=== PATIENT | female | born 1940 | race Caucasian/White ===

== ENCOUNTER 2022-03-06 01:02 | Day surgery (SDC) | payer MEDICARE, SELFPAY ==
--- NOTE | 2022-02-23 15:22 | PC.NURSE ---
Report to the Outpatient Waiting Room, entrance under the green pavilion located off [facility], at time __0600 on date _03/06/22 . OR Time: ___729 . - You and your visitor will be asked to self-screen and do not enter if you have any COVID symptoms. - Only one visitor and NO children visitors are allowed at this time. - The patient visitor is requested to leave or wait in car when not with patient due to restrictions. - A mask is required within the hospital. Patients may have clear liquids (water, carbonated beverages, clear teas, apple juice) until 3 hours prior to surgery with a maximum of 20 ounces. - No food from midnight until time of surgery - Infants may have breast milk until 4 hours before surgery, infant formula 6 hours prior to surgery. - Children will be allowed to drink immediately following surgery. If applicable, please bring a bottle or sippy cup to assist with drinking. Juice, water, soda, and popsicles are readily available. For infants on formula, please bring formula the day of surgery. Pacifiers are allowed. Take the following medications with a SIP of water the morning of surgery: ____NONE Medications to discontinue per physician ___ALL VITAMINS AND SUPPLEMENTS 3 DAYS PRE OP Date to take last dose____03/02/22 Please no make-up, nail danish, hairspray, perfume, deodorant, or body powder the day of surgery. No jewelry (including any body piercings) or valuables the day of surgery, leave them at home. Please take a shower or bath the night before, or the morning of, surgery with an antibacterial soap. Wear comfortable, loose fitting clothing. Children are encouraged to wear pajamas. - Jewelry must be removed prior to entering the operating room. Rings and piercings that are not removed may be cut off. - The hospital will not accept responsibility for valuables. - Please leave all valuables, including medications, at home the day of surgery. If you are going home after surgery, a licensed rolloff truck driver must drive you home. - NO public transportation without another adult. - We recommend that an adult stay with you for 24 hours following discharge. - We also recommend that you do not drive, make important decision, drink alcoholic beverages, or take any drugs that were not prescribed by your health care provider for at least 24 hours after your discharge time. For Pediatric surgeries, we recommend two adults accompany the child home (only one inside the building at this time). Follow any additional instructions given to you from your surgeon. If you or anyone in your household have experienced Covid symptoms in the past week, please notify your surgeon or the nurse liaison at the phone number below for possible testing. Telephone instructions given to __PATIENT and asked if any additional questions and then verbalized understanding. Patient advised to call surgeon office or pre surgery nurse liaison [phone] if any additional questions.
[2022-02-23 15:44] VITALS: BMI 20.5
[2022-03-06] VITALS (7 sets, daily range): BP systolic 98–145; BP diastolic 52–74; PULSE 59–73; RESP 12–20; TEMP 36.2–36.6; O2SAT 96–100
[2022-03-06] MEDS: LACTATED RINGERS 1,000 ML 30 ML IV CONT (07:00)
--- NOTE | 2022-03-06 07:06 | WPDANESEPPF ---
Anes - Initial Pre Proc Eval Procedure: Operation Date: 03/06/22 07:30 Proposed Procedures p Direct Laryngoscopy with Biopsy - Ralú Latif MD Date/Time: 03/06/22 07:06 Surgeon: Raúl Latif MD Pre Op Diagnosis: vocal cord paralysis, hoarseness Patient Data Age: 81 Gender: F Height: 1.52 m Weight: 47.65 kg Allergies Allergy/AdvReac Type Severity Reaction Status Date / Time No Known Allergies Allergy Verified 02/23/22 15:10 Home Medications Medication Instructions Recorded Confirmed Type biotin 5 mg tablet 5 mg PO DAILY 02/23/22 02/23/22 History denosumab 60 mg/mL subcutaneous 60 mg subcut [id number] 02/23/22 02/23/22 History syringe (Prolia) [id number]-[id number]-minerals 18 1 tablet PO DAILY 02/23/22 02/23/22 History mg-0.4 mg tablet Patient hx anesthesia problems: none Family hx anesthesia problems: none Results Review: All pre-operative results and documents have been reviewed as part of the pre-operative evaluation. [facility] Past Medical History Medical History (Updated 03/06/22 @ 07:06 by Alfonso Canela MD) Breast cancer Surgical History Surgical History (Updated 03/06/22 @ 07:06 by Alfonso Canela MD) History of mastectomy Social History Social History Smoking packs per day: 0.5 Smoking cigarettes per day: 10.0 Years smoked: 20 Smoking pack-years: 10.00 Smoking status: Former smoker Tobacco type: cigarettes Smoking end date: 06/25/59 Alcohol intake: current Drinks per week: 1 Living arrangements: alone Spiritual care concerns: No Anes - Eval Final PreProcedure Day of Procedure 03/06/22 07:06 Patient weight: thin Heart: regular rate and rhythm Lungs: clear to auscultation Airway: Mallampati scale class II Neurological: alert and oriented Last oral intake: >/= 8 hours ASA classification: II Emergent: no Anesthetic plan: proceed Anesthesia type and monitoring: general ETT and standard monitoring Results Review: All pre-operative results and documents have been reviewed as part of the pre-operative evaluation. Informed Consent: The patient's anesthetic plan and its attendant risks and benefits were discussed with the patient/family/POA. Questions were solicited and answers provided to the satisfaction of the patient/family/POA.
--- NOTE | 2022-03-06 07:15 | PM.IMHP ---
H&P: HPI History of Present Illness Date/Time: 03/06/22 07:15 Chief Complaint: left vocal fold paresis with submucosal mass Review of Systems Review of Systems: All systems reviewed & are unremarkable except as noted in HPI and below PMFSH Past Medical History Medical History Breast cancer Surgical History Surgical History History of mastectomy Social History Social History Smoking packs per day: 0.5 Smoking cigarettes per day: 10.0 Years smoked: 20 Smoking pack-years: 10.00 Smoking status: Former smoker Tobacco type: cigarettes Smoking end date: 06/25/59 Alcohol intake: current Drinks per week: 1 Living arrangements: alone Spiritual care concerns: No Meds Home Medications and Allergies Home Medications Medication Instructions Recorded Confirmed Type biotin 5 mg tablet 5 mg PO DAILY 02/23/22 02/23/22 History denosumab 60 mg/mL subcutaneous 60 mg subcut [id number] 02/23/22 02/23/22 History syringe (Prolia) [id number]-Jd-nrun-minerals 18 1 tablet PO DAILY 02/23/22 02/23/22 History mg-0.4 mg tablet Allergies Allergy/AdvReac Type Severity Reaction Status Date / Time No Known Allergies Allergy Verified 02/23/22 15:10 Exam Narrative: left vocal fold weakness with submucosal mass potentially present Assessment and Plan Assessment and plan (1) Vocal fold paralysis, left: Code(s): J38.01 - Paralysis of vocal cords and larynx, unilateral Status: Acute Plan This patient has left vocal fold weakness with submucosal fullness concerning for neoplasm with correlating findings on CT. Here today for DL with biopsy. r/b/a reviewed, pt understands and agrees to proceed.
--- NOTE | 2022-03-06 07:16 | WPDHPUPDATE1 ---
History and Physical Update Update Date/Time: 03/06/22 07:16 History and Physical has been reviewed, including an updated exam of the patient. There are NO changes in the patient's condition. Risks, benefits, and alternatives have been discussed and questions answered. Patient agrees to proceed with procedure.
[2022-03-06] MEDS: OXYMETAZOLINE HCL 0.05% NAS 15 ML BTL (*BKC) 1 SPRAY NASAL (07:40)
--- NOTE | 2022-03-06 07:49 | W.PM.PROC2 ---
Procedure Note - Detailed Date of Procedure 03/06/22 Pre-op Diagnosis vocal cord paralysis, hoarseness Post-op Diagnosis Same Procedure Performed DL with endoscopic assisted biopsy and exam Surgeon Raúl Latif MD Anesthesia General Indications left vocal fold paresis Findings submucosal fullness of left supraglottic region, did not appreciate discrete mass, biopsies of submucosal larynx taken Description of Procedure On the date of surgery, the patient was identified in the preoperative holding area. All questions answered, consent signed and verified and they agreed to proceed. They were then brought to the OR and placed under general endotracheal anesthesia with a 6.5 sized endotracheal tube. A shoulder roll was placed. Timeout was performed verifying the correct patient identity and procedure to be performed which they were. The patient was then draped in standard fashion for direct laryngoscopy with biopsy. The bed was rotated 90 degrees counter-clockwise. No dental guard placed because patient is edentulous. A laryngoscope was then advanced in the oral cavity and upper airway to visualize all subsites of the oral cavity, oropharynx, hypopharynx and larynx. There was an asymmetric submucosal fullness to the left supraglottic larynx. A sickel knife was used to make an incision and biopsy forceps were used to take several pieces of tissue for specimen. Minimal bleeding occurred and did not require significant intervention for hemostasis. With all specimen removed, the procedure was concluded. The laryngoscope was removed, and the oral cavity was examined showing no injury to lips, gums, or tongue. Care of the patient was returned to anesthesia who extubated the patient and transferred to the PACU for recovery in stable condition without complication. Raúl Latif M.D. Estimated Blood Loss 1 Drains No Packing No Pathology Yes (left supraglottic larynx biopsy) Complications No immediate complications Condition Stable Disposition PACU
== END 2022-03-06 09:23 | disposition home or self-care (01) ==
PROVIDERS: Visit Provider Otolaryngology
PROC: 0CJS8ZZ Inspection of Larynx, Via Natural or Artificial Opening Endoscopic (ICD-10-PCS; CPT 31535; principal; 2022-03-06 07:30)
DX: J38.01 Paralysis of vocal cords and larynx, unilateral (principal); Z85.3 Personal history of malignant neoplasm of breast; Z87.891 Personal history of nicotine dependence
CPT/HCPCS: 31535; 88305; A9270; J0330; J1100; J2370; J2405; J2704; J3010; J7120